=== PATIENT | male | born 1955 ===

== ENCOUNTER 2018-08-08 05:29 | Inpatient (IN) | payer SELFPAY ==
[2018-08-08] VITALS (15 sets, daily range): BP systolic 113–160; BP diastolic 53–79
[~2018-08-08] VITALS: Ht 142.2 cm; Wt 57.2 kg
[~2018-08-08 05:29] MED LIST: APIDRA SOL100 UNIT/1 SQ; ASPIRIN81 MG ORAL; CARVEDILOL6.25 MG ORAL; CRESTOR20 MG ORAL; INDAPAMIDE2.5 M1 PO; TOUJEO SOL300 UNIT/1 SQ
[2018-08-08] MEDS ORDERED: APIDRA SOL100 UNIT/1 SQ ×2 (06:21)
[2018-08-08] MEDS ORDERED: ceFAZolin sod 1 GM in D5W 55 ML IVP ONE (07:00)
[2018-08-08] MEDS ORDERED: ProvayBlue 5mg/ml 10ml amp INJ ONE (07:15)
--- NOTE | 2018-08-08 07:17 | Anethesia Preoperative Eval ---
Anesthesia Pre-op PMH/ROS General Date of Evaluation: Aug 08, 2018 Anesthesiologist: José Miguel ASA Score: ASA 3 Mallampati Score Class I : Soft palate, uvula, fauces, pillars visible Class II: Soft palate, uvula, fauces visible Class III: Soft palate, base of uvula visible Class IV: Only hard plate visible Mallampati Classification: Class III Surgeon: Miguel Diagnosis: Urethral stricture Surgical Procedure: Urethral reconstruction Anesthesia History: none Family History: no anesthesia problems Allergies: Coded Allergies: No Known Allergies (Unverified , 08/07/18) Patient NPO?: Yes NPO Date: Aug 07, 2018 NPO Time: 2100 Past Medical History Cardiovascular: Reports: HTN, CAD - s/p CABG, other - HLD; Denies: OH, valve dz, arrhythmia Pulmonary: Denies: asthma, COPD, TRINITY, other Gastrointestinal/Genitourinary: Denies: GERD, CRI, ESRD, other Neurologic/Psychiatric: Denies: dementia, CVA, depression/anxiety, TIA, other Endocrine: Reports: DM; Denies: hypothyroidism, steroids, other HEENT: Denies: cataract (L), cataract (R), glaucoma, TEJON (L), TEJON (R), other Hematology/Immune: Denies: anemia, DVT, bleeding disorder, other Musculoskeletal/Integumentary: Denies: OA, RA, DJD, DDD, edema, other PSxH Narrative: umbilical hernia repair, TURP Anesthesia Pre-op Phys. Exam Physician Exam Last Vital Signs Date Time Temp Pulse Resp B/P (MAP) Pulse Ox O2 Delivery O2 Flow Rate FiO2 08/08/18 06:14 97.6 76 20 146/72 (96) 97 08/08/18 06:04 Room Air Constitutional: NAD, other - diaphoretic-states that he sweats a lot, its his baseline Cardiovascular: RRR Respiratory: CTA Airway Exam Mallampati Score: Class III MO: limited ROM: limited Anesthesia Pre-op A/P Labs see chart Studies Pre-op Studies: EKG - sr Risk Assessment & Plan Assessment: ASA III Plan: GA Status Change Before Surgery: No Pre-Antibiotics Drug: Sisi Wilson MD Aug 08, 2018 07:17
[2018-08-08] MEDS ORDERED: LR 1000ml 1,000 ML IVLG SCH (07:18)
[2018-08-08] MEDS ORDERED: Bacitracin 50000 Units Vial ONE (07:30)
[2018-08-08] MEDS ORDERED: fentaNYL 100 mcg/2 mL IV PRN (07:30)
[2018-08-08] MEDS ORDERED: Midazolam 2mg/2ml Inj IVP PRN (07:30)
[2018-08-08] MEDS ORDERED: Hydromorphone 0.5mg/0.5ml inj IVP PRN (07:30)
[2018-08-08] MEDS ORDERED: Metoclopramide 10mg/2ml Inj IVP PRN (07:30)
[2018-08-08] MEDS ORDERED: LORazepam Inj 2mg/ml 1ml IV PRN (07:30)
[2018-08-08] MEDS ORDERED: DiphenhydrAMINE 50mg/ml Inj IVP PRN (07:30)
[2018-08-08] MEDS ORDERED: Midazolam 2mg/2ml Inj ONE (07:34)
[2018-08-08] MEDS ORDERED: fentaNYL 100 mcg/2 mL IV ONE (07:34)
[2018-08-08] MEDS ORDERED: Lidocaine 1% MPF 10mg/ml 5ml ONE (07:34)
[2018-08-08] MEDS ORDERED: Propofol 200mg/20ml IV ONE (07:34)
--- NOTE | 2018-08-08 08:03 | Pre-Procedure Note/Attestation ---
Pre-Procedure Note/Attestation Complete Prior to Procedure Planned Procedure: not applicable Procedure Narrative: urethroplasty cystoscopy Indications for Procedure Pre-Operative Diagnosis: urethral stricture Attestation I attest that I discussed the nature of the procedure; its benefits; risks and complications; and alternatives (and the risks and benefits of such alternatives ), prior to the procedure, with the patient (or the patient's legal specialty sales representative). I attest that, if there was a reasonable possibility of needing a blood transfusion, the patient (or the patient's legal specialty sales representative) was given the [facility] standardized written summary, pursuant to the Spike Puhi Blood Safety Act ([place] Health and Safety Code # 1645, as amended). I attest that I re-evaluated the patient just prior to the surgery and that there has been no change in the patient's H&P, except as documented below: Tree Rivera MD Aug 08, 2018 08:03
[2018-08-08] MEDS ORDERED: Ketorolac 30mg Inj ONE (09:32)
--- NOTE | 2018-08-08 09:49 | Brief Operative Note ---
Immediate Post Operative Note Operative Note Pre-op Diagnosis: urethral stricture Procedure: urethroplasty cystoscopy Post-op Diagnosis: same Post-op Diagnosis: same as pre-op Surgeon: eveline rivera Anesthesia: general Specimen: yes Complications: none Condition: stable Fluids: 500 Estimated Blood Loss: minimal Drains: none Implant(s) used?: No Tree Rivera MD Aug 08, 2018 09:49
--- NOTE | 2018-08-08 10:14 | Immediate Post-Op Evaluation ---
Immediate Post-Op Evalulation Immediate Post-Op Evalulation Procedure: Urethral reconstruction Date of Evaluation: Aug 08, 2018 Time of Evaluation: 10:12 IV Fluids: 1.1L Blood Products: 0 Estimated Blood Loss: 150 Urinary Output: 0 Blood Pressure Systolic: 130 Blood Pressure Diastolic: 63 Pulse Rate: 62 Respiratory Rate: 18 O2 Sat by Pulse Oximetry: 98 Temperature (Fahrenheit): 97.1 Pain Score (1-10): 0 Nausea: No Vomiting: No Complications 0 Patient Status: awake, reacts, patent, none Hydration Status: adequate Drug: Ancef 2g and gentamycin 80mg Given Within 1 Hr of Incision: Yes Time Given: 08:00 Sisi Tolentino MD Aug 08, 2018 10:14
[2018-08-08 11:47] LABS: HEMATOCRIT 49.5 % (42.0-52.0); HEMOGLOBIN 16.5 G/DL (14.2-18.0); MEAN CORPUSCULAR VOLUME 85 FL (80-99); PLATELET COUNT 195 K/UL (150-450); RED BLOOD COUNT 5.84 M/UL (4.70-6.10); RED CELL DISTRIBUTION WIDTH 12.2 % (11.6-14.8)
[2018-08-08 12:03] LABS: ANION GAP 8 mmol/L (5-15); BLOOD UREA NITROGEN 26 mg/dL (7-18); CALCIUM 9.9 MG/DL (8.5-10.1); CARBON DIOXIDE 31 MMOL/L (21-32); CHLORIDE 99 MMOL/L (98-107); CREATININE 1.8 MG/DL (0.55-1.30); POTASSIUM 4.6 MMOL/L (3.5-5.1); SODIUM 138 MMOL/L (136-145)
[2018-08-08] MEDS ORDERED: Ketorolac 30mg Inj IM PRN (12:30)
[2018-08-08] MEDS ORDERED: D5 1/2NS w/KCl 20mEq 1,000 ML IV SCH (13:00)
[2018-08-08] MEDS ORDERED: HYDROmorphone 1mg/ml Carpuject IVP PRN (13:00)
[2018-08-08] MEDS ORDERED: Norco 5mg/325mg tab ORAL PRN (13:00)
[2018-08-08] MEDS ORDERED: Vancomycin 1250mg/D5W 250ml IVPB ONE (14:00)
[2018-08-08] MEDS: NovoLOG Insulin Flexpen SUBQ SCH (16:01)
--- NOTE | 2018-08-08 16:45 | 48 Hour Post Anesthesia Eval ---
Post Anesthesia Evaluation Procedure: Urethral reconstruction Date of Evaluation: Aug 08, 2018 Time of Evaluation: 16:44 Blood Pressure Systolic: 118 0: 72 Pulse Rate: 67 Respiratory Rate: 14 O2 Sat by Pulse Oximetry: 98 Airway: patent Nausea: No Vomiting: No Pain Intensity: 0 Hydration Status: adequate Cardiopulmonary Status: stable Mental Status/LOC: patient returned to baseline Follow-up Care/Observations: na Post-Anesthesia Complications: none Follow-up care needed: N/A Yi Nair CRNA Aug 08, 2018 16:45
[2018-08-08] MEDS: Docusate 100mg cap ORAL SCH ×2 (17:48→20:22)
[2018-08-08 18:13] LABS: BILIRUBIN, URINE 1+ (NEGATIVE); COLOR,URINE BROWN; GLUCOSE, URINE (UA) NEGATIVE (NEGATIVE); KETONES,URINE NEGATIVE (NEGATIVE); LEUKOCYTE ESTERASE ,URINE 3+ (NEGATIVE); NITRITE,URINE POSITIVE (NEGATIVE); PH,URINE 5 (4.5-8.0); PROTEIN,URINE 2+ (NEGATIVE); UROBILINOGEN,URINE 1 MG/DL (0.0-1.0)
[2018-08-08 18:14] LABS: APPEARANCE,URINE SLIGHTLY CLOUDY
[2018-08-08] MEDS: Carvedilol 6.25mg Tab ORAL SCH (20:47)
[2018-08-08] MEDS ORDERED: Levemir Flexpen SUBQ SCH (21:00)
[2018-08-08] MEDS ORDERED: Atorvastatin 20mg tab ORAL SCH (21:00)
[2018-08-09 00:17] VITALS: BP 116/61
[2018-08-09 05:00] VITALS: BP 113/59
[2018-08-09] MEDS: NovoLOG Insulin Flexpen SUBQ SCH ×2 (06:50→12:37)
[2018-08-09 08:00] VITALS: BP 120/62
[2018-08-09 08:20] LABS: BASOPHILS % (AUTO) 0.5 % (0.0-2.0); EOSINOPHILS % (AUTO) 0.5 % (0.0-3.0); HEMATOCRIT 45.2 % (42.0-52.0); HEMOGLOBIN 15.2 G/DL (14.2-18.0); LYMPHOCYTES % (AUTO) 21.8 % (20.0-45.0); MEAN CORPUSCULAR VOLUME 85 FL (80-99); MONOCYTES % (AUTO) 6.2 % (1.0-10.0); PLATELET COUNT 201 K/UL (150-450); RED CELL DISTRIBUTION WIDTH 12.3 % (11.6-14.8); WHITE BLOOD COUNT 9.7 K/UL (4.8-10.8)
[2018-08-09 08:35] LABS: ANION GAP 3 mmol/L (5-15); BLOOD UREA NITROGEN 26 mg/dL (7-18); CALCIUM 9.3 MG/DL (8.5-10.1); CARBON DIOXIDE 34 MMOL/L (21-32); CHLORIDE 100 MMOL/L (98-107); CREATININE 1.5 MG/DL (0.55-1.30); POTASSIUM 4.7 MMOL/L (3.5-5.1); SODIUM 137 MMOL/L (136-145)
[2018-08-09] MEDS: Docusate 100mg cap ORAL SCH (09:20)
[2018-08-09] MEDS: Carvedilol 6.25mg Tab ORAL SCH (09:20)
[2018-08-09] MEDS ORDERED: NORCO 5-325 TA1 EACH ORAL (10:52)
[2018-08-09 12:00] VITALS: BP 120/64
--- NOTE | 2018-08-09 16:00 | History and Physical Report ---
DATE OF ADMISSION: 08/08/2018 DATE OF SERVICE: 08/09/2018 HISTORY OF PRESENT ILLNESS: This is a very pleasant 63-year-old male, who has undergone urethral reconstruction and cystoscopy for urethral stricture by Dr. Rivera yesterday. Surgery was uncomplicated. At this time, he is doing well. The patient has a significant past history of hypertension and diabetes mellitus as well as hyperlipidemia. He also has CAD. MEDICATIONS: His list of home medications include aspirin, Coreg, and Crestor. He also takes Micronesian medications equivalent of JIGNESH inhibitors, long-acting insulin as well as short-acting insulin on a daily basis. ALLERGIES: None reported. PAST HISTORY: CAD, hypertension, diabetes mellitus, hyperlipidemia, and urethral stricture. REVIEW OF SYSTEMS: Denies any headaches, hematemesis, melena, or hematochezia. PHYSICAL EXAMINATION: GENERAL: Reveals a 63-year-old gentleman. HEENT: Unremarkable. LUNGS: Clear breath sounds bilaterally. ABDOMEN: Soft. EXTREMITIES: There is no edema. NEUROLOGIC: Nonfocal. Barajas catheter is in place. LABORATORY DATA: Lab testing shows normal CBC and BMP with creatinine 1.5. IMPRESSION: 1. Postop day #1, status post cystoscopy and urethral reconstruction. 2. CAD. 3. Diabetes mellitus. 4. Hypertension. DISCUSSION: The patient cleared for discharge. Discussed with Dr. Rivera. Discussed with bedside nurse. We will provide prescription for Continental. The patient already has Bactrim at home. Resume home medications. Outpatient followup with Dr. Rivera. We will leave Barajas in place. We will instruct the patient with Barajas care and attach leg bag. Flako Fernando M.D. DR: SARAH JOB#: [id number] CC:
--- NOTE | 2018-08-12 12:48 | Discharge Summary ---
Discharge Summary Hospital Course Date of Admission Aug 08, 2018 at 05:29 Date of Discharge Aug 09, 2018 at 14:35 Admitting Diagnosis urethral stricture Reason for Hospitalization: elective surgery HPI Suhail Armstrong is a 63 year old male who was admitted on Aug 08, 2018 at 05: 29 for Urethral Stricture Consultations dr Fernando IM Procedures s/p 08/08/[address] Rivera urethroplasty , cystoscopy Hospital Course s/p surgery course of recovery uneventful initially IV fluids pain management addressed, pain controlled Barajas catheter with sufficient amount of drainage empiric antibiotic scrotal support dressing clean, dry, and intact bowel regimen initiated home medications resumed blood pressure and blood sugar monitored and managed with current regimen , remained stable patient ambulated, tolerated diet, hemodynamically stable, pain controlled patient was cleared for discharge Barajas bag was changed to leg bag, and family instructed on care /emptying discharge instruction provided follow-up with surgeon as outpatient as advised scripts provided for analgesic and stool softener patient had antibiotics already filled in at home patient was stable for discharge FINAL DIAGNOSES 1. urethral stricture 2. status post cystoscopy and urethral reconstruction 08/08 3. CAD. 4. Diabetes mellitus. 5. Hypertension. Discharge Medications New Medications: Hydrocodone Bit/Acetaminophen 5-325* ([place] 5-325*) 1 Each Tablet 1 TAB ORAL Q4H PRN for 10 Days, TAB Continued Medications: Aspirin* (Aspirin*) 81 Mg Tab.chew 100 MG ORAL DAILY, TAB (This prescription has been renewed) Carvedilol* (Carvedilol*) 6.25 Mg Tablet 6.25 MG ORAL EVERY 12 HOURS, TAB (This prescription has been renewed) Indapamide (Indapamide) 2.5 Mg Tablet 5 MG PO DAILY, TAB (This prescription has been renewed) Insulin Glargine,Hum.rec.anlog (Toujeo Solostar) 300 Unit/1 Ml Insuln.pen 16 UNIT SQ BEDTIME, EA Insulin Glulisine (Apidra Solostar) 100 Unit/1 Ml Insuln.pen 4 UNIT SQ BEFORE BREAKFAST, EA Insulin Glulisine (Apidra Solostar) 100 Unit/1 Ml Insuln.pen 6 UNIT SQ BEFORE LUNCH, EA (This prescription has been renewed) Insulin Glulisine (Apidra Solostar) 100 Unit/1 Ml Insuln.pen 4 UNIT SQ BEFORE DINER, EA Rosuvastatin Calcium* (Crestor*) 20 Mg Tablet 20 MG ORAL DAILY, TAB (This prescription has been renewed) Discharge Discharge Disposition Patient was discharged to Home (01) Discharge Instructions Discharge Instructions Special Instructions I have been assigned to complete a D/C Summary on this account. I was not involved in the patient management No Lee NP Aug 12, 2018 12:48
--- NOTE | 2018-08-13 04:30 | Operative Note - Dictated ---
DATE OF OPERATION: 08/08/2018 PREOPERATIVE DIAGNOSIS: Posterior urethral stricture. POSTOPERATIVE DIAGNOSIS: Posterior urethral stricture. OPERATION: Transperineal posterior urethroplasty and cystoscopy. OPERATED BY: Tree Rivera M.D. FRUIT TRIMMER: Dr. Kaushal Teran. FINDINGS: Approximately 2 cm posterior urethral stricture. INDICATIONS FOR SURGERY: The patient was operated in [facility], transurethral resection of the prostate was performed and the patient developed severe stricture afterwards. He was unable to empty his bladder and had severe decreased urinary stream. The patient was treated with different medical treatments as well as evaluations, which were unsuccessful. After reviewing his films, urethrogram and cystoscopy in my office, decision was made to proceed with open surgery, resection of the stricture and urethroplasty. The patient understands all the potential complications including incontinence, recurrence of the stricture, urinary tract infections, bleeding, hematoma, and signed a consent. PROCEDURE IN DETAIL: He was brought to the operating room, placed in the lithotomy position. Prepped and draped in standard fashion. Under general anesthesia, a 5 cm curvilinear incision was made was excised and urethra was carefully dissected from the mid pendulous urethra to almost prostatic urethra. Careful dissection on both sides with hemostasis and delicate separation of the urethra was performed freeing up all the urethra including the bulb. Once urethra was mobile, flexible cystoscope was used to localize exactly the level of the stricture and the urethra was then transected, the stricture approximately 1.5 to 2 cm, was excised and sent for pathologic examination. After that, the calibration of the distal pendulous urethra was performed, Ritchie sounds were elevated through the 2-Azerbaijani without any findings. End-to-end anastomosis with was performed using interrupted 4-0 Vicryl sutures over an 18-Azerbaijani Barajas catheter. Bladder was then copiously irrigated and there was no evidence of leaks. Wound was closed in 3 layers, subcuticular closure for the skin. The patient tolerated the procedure well. No complications. Tree Rivera M.D. DR: MYRA JOB#: [id number] CC:
== END 2018-08-09 14:35 | disposition home or self-care (01) | DRG 664 ==
LOC: SDSOVERFLO 05:29 → 3E 11:30
PROC: 0TJD8ZZ Inspection of Urethra, Via Natural or Artificial Opening Endoscopic (ICD-10-PCS; principal; 2018-08-08 07:30)
PROC: 0TQD0ZZ Repair Urethra, Open Approach (ICD-10-PCS; principal; 2018-08-08 07:30)
DX: N99.114 Postprocedural urethral stricture, male, unspecified (principal); Y83.8 Other surgical procedures as the cause of abnormal reaction of the patient, or of later complication, without mention of misadventure at the time of the procedure; I10 Essential (primary) hypertension; E11.9 Type 2 diabetes mellitus without complications; E78.5 Hyperlipidemia, unspecified; I25.10 Atherosclerotic heart disease of native coronary artery without angina pectoris; Z79.4 Long term (current) use of insulin; Z95.1 Presence of aortocoronary bypass graft; F17.200 Nicotine dependence, unspecified, uncomplicated
CPT/HCPCS: 36415; 80048; 81001; 82962; 85007; 85025; 86850; 86900; 86901; 87081; 94003; 94150; J1580; J1815; J2250; J2405; S5561